=== PATIENT | male | born 1975 | race Two or more races ===

== ENCOUNTER 2023-12-06 10:29 | Emergency (ER) | payer SELFPAY ==
[2023-12-06] MEDS: traMADol 50 MG Tab PO STA (11:52)
[2023-12-06] MEDS: Benzocaine 20% Topical Spray UD MUCMEM ONE (11:52)
[2023-12-06] MEDS: Lidocaine 2% Viscous Solution 15 ML UD PO ONE (11:52)
== END 2023-12-06 11:58 | disposition home or self-care (01) ==
LOC: MW.ED 10:29
DX: S02.5XXA Fracture of tooth (traumatic), initial encounter for closed fracture (principal); K04.7 Periapical abscess without sinus; Z75.8 Other problems related to medical facilities and other health care; X58.XXXA Exposure to other specified factors, initial encounter
CPT/HCPCS: 99282; A9270